=== PATIENT | male | born 1950 | race Caucasian/White ===

== ENCOUNTER → 2016-12-01 | Outpatient (CLI) | payer OTHER ==
--- NOTE | 2016-12-01 10:45 | RAD ---
PA and lateral chest radiographs 06/10/2017 Clinical history: Acute bronchitis for a few days with cough History of right lower lobectomy in March 2016 due to lung cancer. PA and lateral digital radiographs of the chest were obtained. Comparison study is dated 05/23/2013. The cardiac silhouette is normal in size. The thoracic aorta is tortuous. Atherosclerotic calcification of the thoracic aorta is seen. The patient is status post right shoulder joint replacement. Volume loss of the right lung is seen consistent with patient's history of a right lower lobectomy. No acute pulmonary infiltrate is seen. No pleural effusion or pneumothorax is definitely visualized. Degenerative changes are seen involving the thoracic spine. Impression: No acute abnormality is seen.
== END | disposition home or self-care (01) ==
LOC: DXRADRC 09:40
PROVIDERS: ATTEND Internal Medicine
DX: J20.9 Acute bronchitis, unspecified (principal); I70.0 Atherosclerosis of aorta; R05 Cough; Z90.2 Acquired absence of lung [part of]; Z85.118 Personal history of other malignant neoplasm of bronchus and lung; Z96.619 Presence of unspecified artificial shoulder joint
CPT/HCPCS: 71020